=== PATIENT | female | born 1990 | race American Indian/Alaskan Native ===

== ENCOUNTER 2019-03-04 00:38 | Inpatient (IN) | payer OTHER ==
[2019-03-04] MEDS: LACTATED RINGERS 1,000 ML IV SCH ×2 (04:55→06:29)
[2019-03-04] MEDS ORDERED: MINERAL OIL 30 ML ORAL LIQD PO PRN (05:36)
[2019-03-04] MEDS ORDERED: ePHEDrine SULFATE 50 MG/1 ML INJ IV PRN (05:36)
[2019-03-04] MEDS ORDERED: TERBUTALINE 1 MG/1 ML INJ IVP PRN (05:36)
[2019-03-04] MEDS ORDERED: BUTORPHANOL 2 MG/1 ML INJ IV PRN (05:36)
[2019-03-04] MEDS ORDERED: LIDOCAINE (2%) 20 MG/1 ML VIAL 20 ML MDV INFILTRATI ONE (05:36)
[2019-03-04] MEDS ORDERED: ONDANSETRON 4 MG/2 ML INJ IV PRN ×2 (05:36→10:30)
[2019-03-04] MEDS ORDERED: TERBUTALINE 1 MG/1 ML INJ SUB-Q PRN (05:36)
[2019-03-04] MEDS: OXYTOCIN 20 UNIT/1000ML DRIP 20 UNITS/1,000 ML BAG IV SCH ×2 (07:12→07:59)
[2019-03-04 07:32] LABS: Hematocrit 35.2 % (30.3-42.9); Hemoglobin 11.3 gm/dl (10.1-14.3); Mean Corpuscular HGB Conc 32 % (30-34); Mean Corpuscular Volume 87 fl (79-97); Platelet Count 257 K/mm3 (140-440); Red Blood Count 4.05 M/mm3 (3.65-5.03); Red Cell Distribution Width 16.4 % (13.2-15.2)
--- NOTE | 2019-03-04 07:34 | History and Physical Report ---
History of Present Illness Date of examination: 03/04/19 Date of admission: 03/04/19 04:46 Chief complaint: Labor History of present illness: Labor Past History : 8 Term Births: 5 Premature Births: 0 Living Children: 5 Para: 5 Mult. Births: 0 Prev : 0 Aborta: 2 Elect. Ab: 2 Spont. Ab: 0 Ectopics: 0 # 1 Delivery date: 08/2008 Weeks Gestation: 37 Delivery type: Anesthesia type: epidural Delivery location: [facility] Sex: Male weight: 5-7 Comments: IUGR IOL # 2 Delivery date: 10/2009 Weeks Gestation: term Delivery type: Anesthesia type: none Delivery location: [facility] Infant Sex: Female weight: 6-8 Comments: delivered fast # 3 Delivery date: 12/2010 Weeks Gestation: term Delivery type: Anesthesia type: epidural Delivery location: [facility] Sex: Male weight: 6 # 4 Delivery date: 06/28/2015 Weeks Gestation: 39 Delivery type: Vaginal Anesthesia type: epidural Delivery location: [facility] Sex: female weight: 6.88 Comments: meconium # 5 Weeks Gestation: 15 Delivery type: EAB # 6 Delivery date: 2017 Weeks Gestation: 37 Delivery type: Delivery location: [facility] Infant Sex: Female Past Medical History: Reviewed history from 06/15/2016 and no changes required: Sabrina 12/2015 Past Surgical History: Reviewed history from 06/15/2016 and no changes required: negative Past Medical History Social Hx: Patient is single Smoking History: Patient has never smoked. Infection History Hx of STD: chlamydia HIV Risk Eval: low risk Hepatitis B Risk Eval: low risk Personal hx. of genital herpes: no Partner hx. of genital herpes: no Rash, Viral, or Febrile illness since last LMP? no Varicella/Chicken Pox Status: Previous Disease Genetic History Congenital Heart Defect: Mom: no Dad: no Jelani Disease: Mom: no Dad: no Thalassemia Mom: no Dad: no Neural Tube Defect Mom: no Dad: no Down's Syndrome Mom: no Dad: no Jefferson-Sachs Mom: no Dad: no Sickle Cell Disease/Trait Mom: no Dad: no Hemophilia Mom: no Dad: no Muscular Dystrophy Mom: no Dad: no Cystic Fibrosis Mom: no Dad: no [place] Chorea Mom: no Dad: no Mental Retardation Mom: no Dad: no Fragile X Mom: no Dad: no Other Genetic/Chromosomal Disorder Mom: no Dad: no Child w/other defect Mom: no Dad: no Enviromental Exposures Xray Exposure: no Medication, drug, or alcohol use since LMP: no Chemical/Other Exposure: no Exposure to Cat Liter: no Hx of Parvovirus (Fifth Disease): no Occupational Exposure to Children: none Active Medications (reviewed today): PLUS 27-1 MG ORAL TABLET ( VIT-FE FUMARATE-FA) 1 po Current Allergies (reviewed today): No known allergies Past History - Obstetrical History Expected Date of Delivery: 03/25/19 Actual Gestation: 37 Week(s) 0 Day(s) : 7 Medications and Allergies Allergies Allergy/AdvReac Type Severity Reaction Status Date / Time No Known Allergies Allergy Verified 03/04/19 05:56 Home Medications Medication Instructions Recorded Confirmed Last Taken Type No Known Home Medications [No 06/29/15 06/29/15 Unknown History Reported Home Medications] Active Meds: Active Medications Butorphanol Tartrate (Stadol) 2 mg IV Q2H PRN PRN Reason: Pain , Severe (7-10) Last Admin: 03/04/19 05:45 Dose: 2 mg Documented by: Ephedrine Sulfate (Ephedrine Sulfate) 10 mg IV Q2M PRN PRN Reason: Hypotension Oxytocin/Sodium Chloride (Pitocin/Ns 20 Unit/1000ml Drip) 20 units in 1,000 mls @ 125 mls/hr IV DIRECT MONICA Last Admin: 03/04/19 07:12 Dose: 125 mls/hr Documented by: Lactated Ringer's (Lactated Ringers) 1,000 mls @ 125 mls/hr IV DIRECT MONICA Last Admin: 03/04/19 06:29 Dose: 125 mls/hr Documented by: Ketorolac Tromethamine (Toradol) 30 mg IV ONCE ONE Stop: 03/04/19 07:27 Mineral Oil (Mineral Oil) 30 ml PO QHS PRN PRN Reason: Constipation Ondansetron HCl (Zofran) 4 mg IV Q8H PRN PRN Reason: Nausea And Vomiting Terbutaline Sulfate (Brethine) 0.25 mg SUB-Q ONCE PRN PRN Reason: Hyperstimulation/Hypertonicity Terbutaline Sulfate (Brethine) 0.25 mg IVP ONCE PRN PRN Reason: Hyperstimulation/Hypertonicity - Vital Signs Vital signs: Vital Signs Temp Resp 98.4 F 18 03/04/19 01:23 03/04/19 01:23 Temp Pulse Resp BP Pulse Ox 98.4 F 91 H 18 114/67 100 03/04/19 01:23 03/04/19 07:19 03/04/19 01:23 03/04/19 07:19 03/04/19 07:16 Results All other labs normal. Assessment and Plan - Patient Problems (1) 37 weeks gestation of Current Visit: Yes Status: Acute (2) Active labor at term Current Visit: No Status: Acute
--- NOTE | 2019-03-04 07:46 | Procedure Note ---
OB Delivery Note - Delivery Date of Delivery: 03/04/19 Surgeon: TAMAR LAI Estimated blood loss: 300cc - Vaginal Delivery presentation: vertex Delivery position: OP Intrapartum events: meconium Delivery induction: none Delivery monitor: external FHT, external uterine Route of delivery: Delivery placenta: spontaneous (intact) Delivery cord: nuchal cord (x1) Episiotomy: none Delivery laceration: 2nd degree Delivery repair: vicryl (Lidocaine 2% w/o epi, usu fashion. ) Anesthesia: local, intravenous - Infant A at 1 minute: 8 at 5 minutes: 9 Gender: Female (6lb 1oz)
[2019-03-04] MEDS ORDERED: KETOROLAC 30 MG/1 ML INJ IV ONE (08:00)
[2019-03-04] MEDS ORDERED: PROMETHAZINE 25 MG TAB PO PRN (10:30)
[2019-03-04] MEDS ORDERED: diphenhydrAMINE 25 MG CAP PO PRN (10:30)
[2019-03-04] MEDS ORDERED: LANOLIN/ZINC/DIMETHICONE (LANSINOH) 7 GM TP PRN (10:30)
[2019-03-04] MEDS ORDERED: ACETAMINOPHEN 325 MG TAB PO PRN (10:30)
[2019-03-04] MEDS ORDERED: OXYTOCIN 20 UNIT/1000ML DRIP 20 UNITS/1,000 ML BAG IV SCH (10:30)
[2019-03-04] MEDS ORDERED: WITCH HAZEL/ GLYCERIN PAD TP PRN (10:30)
[2019-03-04] MEDS ORDERED: PROMETHAZINE 25 MG RECT SUPP PR PRN (11:00)
[2019-03-04] MEDS: IBUPROFEN 600 MG TAB PO SCH ×2 (11:41→23:56)
[2019-03-04 19:57] LABS: Hematocrit 27.8 % (30.3-42.9); Hemoglobin 8.9 gm/dl (10.1-14.3)
[2019-03-04] MEDS ORDERED: MAGNESIUM HYDROXIDE (MOM) ORAL LIQD UDC PO PRN (22:00)
[2019-03-05] MEDS: IBUPROFEN 600 MG TAB PO SCH ×2 (05:56→12:00)
[2019-03-05] MEDS ORDERED: TETANUS,DIPH,PERTUSS(ACELL) VACCINE 0.5 ML SYRINGE IM ONE (06:00)
--- NOTE | 2019-03-05 07:58 | Discharge Summary ---
Providers - Providers Date of Admission: 03/04/19 04:46 Date of discharge: 03/05/19 Attending physician: TAMAR LAI 03/04/19 09:26 Consult to System Planning Engineer [CONS] Routine Reason For Exam: assistance with , SNS Primary care physician: TAMAR LAI Hospitalization Reason for admission: labor Condition: Good Pertinent studies: H&H 8.9.27.8, asymptomatic anemia associated with acute blood loss Procedures: Hospital course: uncomplicated and course Disposition: DC-01 TO HOME OR SELFCARE - Discharge Diagnoses (1) Anemia associated with acute blood loss Status: Acute (2) Spontaneous vaginal delivery Status: Acute Core Measure Documentation - Palliative Care Palliative Care/ Comfort Measures: Not Applicable - Core Measures Any of the following diagnoses?: none Exam - Constitutional Vitals: Temp Pulse Resp BP Pulse Ox 98.0 F 77 20 110/64 99 03/05/19 01:58 03/05/19 01:58 03/05/19 05:56 03/05/19 01:58 03/05/19 01:58 General appearance: Present: no acute distress, well-nourished - EENT Eyes: Present: PERRL ENT: hearing intact, clear oral mucosa - Neck Neck: Present: supple, normal ROM - Respiratory Respiratory effort: normal Respiratory: bilateral: CTA - Cardiovascular Rhythm: regular - Extremities Extremities: No edema - Abdominal General gastrointestinal: Present: soft, non-tender - Integumentary Integumentary: Present: clear, warm, dry - Musculoskeletal Musculoskeletal: strength equal bilaterally - Psychiatric Psychiatric: appropriate mood/affect, intact judgment & insight, memory intact - Neurologic Neurologic: CNII-XII intact, moves all extremities - Additional findings Additional findings: lochia scant, fundus firm Plan Activity: no restrictions Diet: regular Follow up with: TAMAR LAI MD [Primary Care Provider] - 6 Weeks (Congratulations! Please call [phone] to schedule your visit in 6 weeks. Call for any questions or complaints.) Prescriptions: Ferrous Sulfate [Feosol 325 MG tab] 325 mg PO BID #60 tablet Ibuprofen [Motrin 800 MG tab] 800 mg PO Q8HR PRN #30 tablet PRN Reason: Pain
[2019-03-05] MEDS ORDERED: FLU VACC QUAD 2019-20 (3 YR UP)/PF 60 MCG/0.5 ML SYRINGE IM ONE (12:00)
[2019-03-05 16:59] VITALS: BP 104/67
== END 2019-03-05 17:15 | disposition home or self-care (01) | DRG 775 ==
LOC: TRG 00:38 → LD 04:46 → OB 09:26
PROVIDERS: ADMIT Obstetrics & Gynecology; ATTEND Obstetrics & Gynecology
PROC: 10E0XZZ Delivery of Products of Conception, External Approach (ICD-10-PCS; principal; 2019-03-04)
PROC: 0KQM0ZZ Repair Perineum Muscle, Open Approach (ICD-10-PCS; 2019-03-04)
PROC: 3E0234Z Introduction of Serum, Toxoid and Vaccine into Muscle, Percutaneous Approach (ICD-10-PCS; 2019-03-05)
DX: O77.0 Labor and delivery complicated by meconium in amniotic fluid (principal); O69.81X0 Labor and delivery complicated by cord around neck, without compression, not applicable or unspecified; O99.02 Anemia complicating childbirth; D62 Acute posthemorrhagic anemia; O70.1 Second degree perineal laceration during delivery; Z3A.37 37 weeks gestation of pregnancy; Z37.0 Single live birth; Z23 Encounter for immunization
CPT/HCPCS: 36415; 85014; 85018; 85027; 86592; 86850; 86900; 86901; 90686; G0378; J0595; J1885; J2590; J7120